=== PATIENT | female | born 2000 | race Caucasian/White ===

== ENCOUNTER 2023-01-20 18:19 | Outpatient (CLI) | payer OTHER ==
[2023-01-20] MEDS ORDERED: PRENATAL CAPLE1 EAC1 (20:18)
== END 2023-01-21 11:00 | disposition home or self-care (01) ==
LOC: OBS/DEL 18:19
PROVIDERS: ATTEND Obstetrics & Gynecology
DX: O26.892 Other specified pregnancy related conditions, second trimester (principal); R10.2 Pelvic and perineal pain; Z3A.23 23 weeks gestation of pregnancy

== ENCOUNTER 2023-05-16 08:00 | Inpatient (IN) | payer OTHER ==
[~2023-05-16] VITALS: Ht 167.6 cm; Wt 3.2 kg
[~2023-05-16 08:00] MED LIST: PRENATAL CAPLE1 EAC1
== END 2023-05-18 15:29 | disposition home or self-care (01) | DRG 788 ==
LOC: LDR 08:00 → OB/GYN 05-17 00:03
PROVIDERS: ADMIT Obstetrics & Gynecology; ATTEND Obstetrics & Gynecology
PROC: 3E033VJ Introduction of Other Hormone into Peripheral Vein, Percutaneous Approach (ICD-10-PCS; 2023-05-16)
PROC: 3E0P7VZ Introduction of Hormone into Female Reproductive, Via Natural or Artificial Opening (ICD-10-PCS; 2023-05-16)
PROC: 4A1HXCZ Monitoring of Products of Conception, Cardiac Rate, External Approach (ICD-10-PCS; 2023-05-16)
PROC: 10D00Z1 Extraction of Products of Conception, Low, Open Approach (ICD-10-PCS; principal; 2023-05-16 23:00)
DX: O62.1 Secondary uterine inertia (principal); Z20.822 Contact with and (suspected) exposure to COVID-19; Z37.0 Single live birth; Z3A.39 39 weeks gestation of pregnancy